=== PATIENT | male | born 1940 | race Two or more races ===

== ENCOUNTER → 2024-06-30 | Emergency (ER) | payer MEDICARE, OTHER ==
[~2024-06-30] VITALS: Ht 172.7 cm; Wt 80.7 kg
[~2024-06-30] MED LIST: ACETAMINOPHEN 500 MG TABLET ONE; LOSA50TA39 PO; METF-442 PO; NEOMY/BACITRA/POLYMYXIN B OINT UD PACKET TP ONE
[2024-06-30] MEDS: ACETAMINOPHEN 500 MG TABLET PO ONE (19:47)
[2024-06-30] MEDS: NEOMY/BACITRA/POLYMYXIN B OINT UD PACKET TP ONE (21:43)
[2024-06-30 22:16] VITALS: BP 137/90; TEMP 98.2; O2SAT 98
== END | disposition home or self-care (01) ==
LOC: ER 18:51
DX: S39.012A Strain of muscle, fascia and tendon of lower back, initial encounter (principal); S50.12XA Contusion of left forearm, initial encounter; S80.01XA Contusion of right knee, initial encounter; S80.02XA Contusion of left knee, initial encounter; S60.511A Abrasion of right hand, initial encounter; S46.092A Other injury of muscle(s) and tendon(s) of the rotator cuff of left shoulder, initial encounter; M25.531 Pain in right wrist; M79.632 Pain in left forearm; E11.9 Type 2 diabetes mellitus without complications; I10 Essential (primary) hypertension; K21.9 Gastro-esophageal reflux disease without esophagitis; Z79.84 Long term (current) use of oral hypoglycemic drugs; Z79.899 Other long term (current) drug therapy; V03.10XA Pedestrian on foot injured in collision with car, pick-up truck or van in traffic accident, initial encounter; Y93.89 Activity, other specified; Y92.89 Other specified places as the place of occurrence of the external cause; Y99.8 Other external cause status
CPT/HCPCS: 72110; 73020; 73090; 73100; 73120; A4606; A4663; A9150